=== PATIENT | female | born 2000 | race Caucasian/White ===

== ENCOUNTER 2024-11-07 11:06 | Emergency (ER) | payer OTHER, SELFPAY ==
[2024-11-07 11:20] VITALS: BP 119/80; PULSE 114; RESP 18; TEMP 36.9; O2SAT 100
--- NOTE | 2024-11-07 11:44 | ED_ITS ---
HPI - Nausea/Vomiting/Diarrhea General Chief complaint: Nausea/Vomiting/Diarrhea Stated complaint: Nausea/Vomiting/Headache Source: patient and RN notes reviewed Mode of arrival: ambulatory Limitations: no limitations History of Present Illness HPI Narrative: 24-year-old female presented for complaint of nausea and vomiting, onset 4 days. Endorses last episode of emesis was last evening. She states she is feeling much better today, tolerating food and fluids. She denies any abdominal pain, urinary complaints, hematochezia or melena. Patient started with headache and bilateral ear pressure today. Not taking anything for symptoms. Related Data Home Medications ?Medication ?Instructions ?Recorded ?Confirmed ?Last Taken ?Type escitalopram oxalate 5 mg tablet 5 mg PO DAILY 11/07/24 11/07/24 Unknown History (Lexapro) norelgestromin 150 mcg-e.estradiol patch 11/07/24 Unknown History 35 mcg/24 hr weekly transderm patch Allergies Allergy/AdvReac Type Severity Reaction Status Date / Time No Known Allergies Allergy Verified 11/07/24 11:18 Review of Systems Review of Systems: CONSTITUTIONAL: Denies body aches, fever, chills ENT: Denies rhinorrhea, congestion CARDIOVASCULAR: Denies chest pain, palpitations, or edema. RESPIRATORY: Denies cough or dyspnea. GASTROINTESTINAL: Endorses nausea, vomiting, Denies abdominal pain, diarrhea, hematochezia, melena GENITOURINARY: Denies hematuria, or CVA tenderness. SKIN: Denies rash MUSCULOSKELETAL: Denies back pain, joint pain, or myalgia. NEUROLOGIC: Denies headache, numbness, tingling, or weakness. All systems reviewed & are unremarkable except as noted in HPI and below PMFSH Comments At time of signature, I have reviewed and agree with nursing past medical, surg ical, social and family history unless otherwise noted. Please see nursing chart for further information. There is no relevant family history pertinent to the presenting complaint Exam Narrative: GENERAL: Well-appearing, and in no acute distress. EYES: EOMI. Conjunctivae normal. ENT: Mucous membranes pink and moist. CHEST: No respiratory distress. Clear to auscultation. HEART: Regular rate and rhythm. No murmur appreciated. Normal peripheral pulses. ABDOMEN: abd soft, nondistended, normal active bowel sounds. nontender abdomen; No guarding, rebound tenderness, asymmetry EXTREMITIES: Normal range of motion. No edema. SKIN: Warm, dry, no rash. Capillary refill normal. Normal skin turgor. NEURO: No focal deficits. Alert and oriented x3. PSYCH: Normal affect. Course Course Emergency Course: Patient is aware of diagnosis, understands and agrees to treatment plan. Anticipatory guidance given. Patient agrees to follow-up as directed and is aware of reasons to seek care at the emergency department. Portions of this record may have been created with voice recognition software Level of Care: Express Care Visit Vital Signs Vital signs: Vital Signs Temperature 98.5 F 11/07/24 11:20 Pulse Rate 114 H 11/07/24 11:20 Respiratory Rate 18 11/07/24 11:20 Blood Pressure 119/80 11/07/24 11:20 Pulse Oximetry 100 11/07/24 11:20 Temperature 98.5 F 11/07/24 11:20 Pulse Rate 114 H 11/07/24 11:20 Respiratory Rate 18 11/07/24 11:20 Blood Pressure 119/80 11/07/24 11:20 Pulse Oximetry 100 11/07/24 11:20 MDM - Nausea/Vomiting/Diarrhea MDM Narrative Medical decision making narrative: Discussed physical exam findings, negative flu and COVID. Patient declined prescription for Zofran Advised supportive measures and signs/symptoms to go to the ER. Pt is appropriate for outpt treatment and f/u. Differential Diagnosis Differential diagnosis: Likely food poisoning, drug-induced nausea and vomiting and dehydration Discharge Plan Discharge Clinical Impression: Nausea & vomiting Patient Disposition: Home Condition: Stable Instructions: Gastroenteritis (ED) Additional Instructions: Flu and Covid negative today. Stay hydrated. Take small sips of fluid containing electrolytes frequently. Clear liquids (broth, jello, tea, sprite, pedialyte) [place] foods (bananas, rice, applesauce, toast, crackers) Avoid fatty, greasy, fried or spicy foods. Limit dairy until symptoms are improved. You should go to the hospital if you experience persistent nausea and vomiting that does not resolve and does not allow you to tolerate any food or fluids, fevers, increasing abdominal pain, persistent diarrhea, dizziness, fainting, or for any other concerns. Follow up with primary care provider in 3 days. Patient Language: Swedish Prescriptions: No Action escitalopram oxalate [Lexapro] 5 mg tablet 5 mg PO DAILY norelgestromin-ethin.estradiol 150-35 mcg/24 hr patch weekly Follow-up/Referrals: PHYSICIAN,EYEGLASS FRAMES POLISHER [Primary Care Provider] - Time of Disposition: 11:45
[2024-11-07 11:49] LABS: EDCOVIDSCREEN Negative (Negative); EDINFLUASCREEN Negative (Negative); EDINFLUBSCREEN Negative (Negative)
== END 2024-11-07 11:52 | disposition home or self-care (01) ==
PROVIDERS: Emergency Provider Nurse Practitioner Family
DX: R11.2 Nausea with vomiting, unspecified (principal); Z20.822 Contact with and (suspected) exposure to COVID-19
CPT/HCPCS: 87426; 87804; 99202; G0463

== ENCOUNTER 2024-11-22 08:31 | Outpatient (CLI) | payer OTHER, SELFPAY ==
--- OUTSIDE RECORDS SUMMARY | 2024-03-07 11:20 | XMS_ITS ---
Author Organization [facility] Address [address] [place] [phone] Care Team Providers Care Marketing Forecaster Name Role Phone Kathia Goldberg PA-C Primary Care Provider Unavailable Kathia Goldberg Unavailable REASON FOR VISIT 1 yr f/up patient at home, provider in the office Social History Sex Assigned At : Social History Observation Description Sex Assigned At Female Encounters Encounter Location Date Provider Diagnosis [facility] [address] [place] [phone] 03/07/2024 Kathia Hicks Plan Of Treatment No Information Progress Notes * Jagruti WILSONeDOB:[birth year] (24 yo F)Acc No.[id number]:03/07/2024 UNLOCKED PROGRESS NOTE Patient: Racheal hankstraceyChristi Provider: Mickie Tejada PA-C :2000 A ge:23 Y S ex:Female Date:03/07/2024 [id number] Pcp:JEFF Brown Subjective: * Chief Complaints: * 1 yr f/up patient at home, provider in the office * Electronic signature of Dalia Hicks PA-C on 11/22/2024 at 08:34 AM CDT Sign off status: Pending Visit Status: R /S (Rescheduled) * Provider: Mickie Tejada PA-C Date: 1 05/08/2023 Generated for Shirley humphries/Dom/Theodora on: 0 11/22/2024 08:34 AM CDT
--- OUTSIDE RECORDS SUMMARY | 2024-11-22 08:34 | XMS_ITS | Clinical Summary ---
Author Organization [facility] Address [address] [facility] [place] [address] Care Team Providers Care Service Cashier Name Role Phone Maxwell Mckee MD Primary Care Provider [phone] Source Comments [facility] Affiliates and Associated Physician Practices is amultiple site organization consisting of ambulatory clinics and hospital sitesin [place] and [place]. This disclosure is being madepursuant to the Care Everywhere program and may not contain all information available regarding this patient. Last updated 17.[facility] Allergies No known active allergies Medications * Be aware that medications may not be up to date on this document. Alwaysverify current medications with the patient. XULANE 150-35 MCG/24HR patch Apply 1 (one) patch to skin every 7 days 3 patch 11 05/19/2021 Active escitalopram (Lexapro) 5 MG tablet TAKE 1 (ONE) TABLET BY MOUTH ONCE DAILY 90 tablet 3 05/11/2022 Active Family History Medical History Relation Name Comments Anxiety Disorder Father Bernard Hypertension Father Bernard Parkinson's Disease Maternal Grandfather Melvin Hypertension Maternal Grandmother Laura CAD (Coronary Artery Disease) Paternal Grandfather Matias Cancer - Prostate Paternal Grandfather Matias Hypertension Paternal Grandfather Matias Anxiety Disorder Paternal Grandmother Wanda CAD (Coronary Artery Disease) Paternal Grandmother Rut vicki Cancer - Breast Paternal Grandmother Wanda Diabetes - Type 2 Paternal Grandmother Wanda Hypertension Paternal Grandmother Wanda Relation Name Status Comments Father Bernard Alive Maternal Grandfather Melvin Alive Maternal Grandmother Laura Alive Mother Jaquelin Alive Paternal Grandfather Matias Alive Paternal Grandmother Wanda Social History Tobacco Use Types Packs/Day Years Used Date Smoking Tobacco: Never Smokeless Tobacco: Never Tobacco Cessation:Counseling Given: Not Answered Alcohol Use Standard Drinks/Week Comments No 0 (1 standard drink = 0.6 oz pur e alcohol) PHQ-2 Answer Date Recorded PHQ2 TOTAL SCORE 0 07/08/2022 Comments No Sex and Gender Information Value Date Recorded Sex Assigned at Not on file 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 Gender Identity Not on file Sexual Orientation Not on file Last Filed Vital Signs Vital Sign Reading Time Taken Comments Blood Pressure 109/76 07/08/2022 2:39 PM CDT Pulse 67 07/08/2022 2:39 PM CDT Temperature 36.9 C (98.5 F) 07/08/2022 2:39 PM CDT Respiratory Rate - - Oxygen Saturation 99% 07/08/2022 2:39 PM CDT Inhaled Oxygen Concentration - - Weight 63 kg (139 lb) 07/08/2022 2:39 PM CDT Height 165.1 cm (5' 5) 07/08/2022 2:39 PM CDT Body Mass Index 23.13 07/08/2022 2:39 PM CDT Plan of Treatment Health Maintenance Due Date Last Done Comments COVID-19 VACCINE (2023-2 5 season) 2023 06/10/2020 DEPRESSION SCREENING 04/03/2024 07/08/2022, 07/02/2021 INFLUENZA VACCINE (#1) 2024 01/29/2021 ZOSTER VACCINE (1 of 2) 10/08/2049 CHLAMYDIA/GONORRHEA SCREENING Discontinued DTAP/TDAP/TD VACCINES Discontinued HEPATITIS B VACCINE Discontinued HEPATITIS C SCREENING Discontinued HIB VACCINE Aged Out No longer eligi ble based on patient's age to complete this topic HIV SCREENING Discontinued HPV VACCINE Discontinued MENINGOCOCCAL (Group B) VACCINE SHARED DECISION-MAKING Aged Out No longer eligible based on patient's age to complete this topic MENINGOCOCCAL GROUPS A/C/Y/W VACCINE Aged Out No longer eligible based on patient's age to complete this topic PNEUMOCOCCAL VACCINE Aged Out No long er eligible based on patient's age to complete this topic Insurance [employer] Care Teams Service Cashier Relationship Specialty Start Date End Date Maxwell Mckee MD [address] [place] [address] PCP - General Family Medicine 06/01/18
--- OUTSIDE RECORDS SUMMARY | 2024-11-22 08:35 | XMS_ITS | Patient Health Record ---
Author Organization [facility] Address [address] [facility] [address] [place] [phone] Care Team Providers Care Radiation Safety Officer Name Role Phone Kathia Goldberg PA-C Primary Care Provider Unavailable Kathia Goldberg Unavailable Allergies No Known Allergies Results Component Value Reference Range Flag Notes LIPID PANEL Reviewed date:01/04/2024 09:01:10 AM Interpretation: Performing Lab:[facility]-[id number] Gilberto [id number] Kevin David MD Notes/Report: 0; 0; 0 CHOLESTEROL, TOTAL 207 <200 mg/dL H HDL CHOLESTEROL 58 > OR = 50 mg/dL N TRIGLYCERIDES 149 <150 mg/dL N LDL-CHOLESTEROL 123 H Reference range: <100 Desirable range <100 mg/dL for primary prevention; <70 mg/dL for patients with CHD or diabetic patients with > or = 2 CHD risk factors. LDL-C is now calculated using the Azael-Chloe calculation, which is a validated novel method providing better accuracy than the Friedewald equation in the estimation of LDL-C. Azael CALIX et al. YARITZA. 2013;310(19): 2756-7057 (http://education.[employer].dotSyntax/faq/FAQ 164) CHOL/HDLC RATIO 3.6 <5.0 (calc) N NON HDL CHOLESTEROL 149 <130 mg/dL (calc) H For patients with diabetes plus 1 major ASCVD risk factor, treating to a non-HDL-C goal of <100 mg/dL (LDL-C of <70 mg/dL) is considered a therapeutic option. COMPREHENSIVE METABOLIC PANE L (CMP) Reviewed date:01/04/2024 09:01:29 AM Interpretation: Performing Lab:[facility]-[id number] Susi Mehta, [id number] Kevin David MD Notes/Report: 0; 0; 0 GLUCOSE 82 65-99 mg/dL N Fasting reference interval UREA NITROGEN (BUN) 8 7-25 mg/dL N CREATININE 0.84 0.50-0.96 mg/dL N EGFR 99 > OR = 60 mL/min/1.73m2 N BUN/CREATININE RATIO SEE NOTE: 6-22 (calc) Not Reported: BUN and Creatinine are within reference range. SODIUM 138 135-146 mmol/L N POTASSIUM 3.9 3.5-5.3 mmol/L N CHLORIDE 102 98-110 mmol/L N CARBON DIOXIDE 30 20-32 mmol/L N CALCIUM 9.8 8.6-10.2 mg/dL N PROTEIN, TOTAL 7.4 6.1-8.1 g/dL N ALBUMIN 4.2 3.6-5.1 g/dL N GLOBULIN 3.2 1.9-3.7 g/dL (calc) N ALBUMIN/GLOBULIN RATIO 1.3 1.0-2.5 (calc) N BILIRUBIN, TOTAL 1.7 0.2-1.2 mg/dL H ALKALINE PHOSPHATASE 62 31-125 U/L N AST 21 10-30 U/L N ALT 25 6-29 U/L N CBC W AUTO DIFF Reviewed date:01/04/2024 09:01:44 AM Interpretation: Performing Lab:[facility]-[id number] Susi Mehta, [id number] Kevin David MD Notes/Report: 0; 0; 0 WHITE BLOOD CELL COUNT 6.9 3.8-10.8 Thousand/uL N RED BLOOD CELL COUNT 4.30 3.80-5.10 Million/uL N HEMOGLOBIN 12.8 11.7-15.5 g/dL N HEMATOCRIT 39.0 35.0-45.0 % N MCV 90.7 80.0-100.0 fL N MCH 29.8 27.0-33.0 pg N MCHC 32.8 32.0-36.0 g/dL N For adults, a slight decrease in the calculated MCHC value (in the range of 30 to 32 g/dL) is most likely not clinically significant; however, it should be interpreted with caution in correlation with other red cell parameters and the patient's clinical condition. RDW 12.2 11.0-15.0 % N PLATELET COUNT 351 140-400 Thousand/uL N MPV 10.6 7.5-12.5 fL N ABSOLUTE NEUTROPHILS 3678 9986-3501 cells/uL N ABSOLUTE LYMPHOCYTES 2312 850-3900 cells/uL N ABSOLUTE MONOCYTES 600 200-950 cells/uL N ABSOLUTE EOSINOPHILS 262 15-500 cells/uL N ABSOLUTE BASOPHILS 48 0-200 cells/uL N NEUTROPHILS 53.3 N LYMPHOCYTES 33.5 N MONOCYTES 8.7 N EOSINOPHILS 3.8 N BASOPHILS 0.7 N Reason For Referral No Information Medications Medication SIG (Take, Route, Frequency, Duration) Notes Start Date End Date Status Triamcinolone Acetonide 0.1 % Paste 1 application at bedtime Mouth Daily; Duration: 30 days 05/05/2023 Not-Taking Zafemy 150-35 MCG/24HR Patch Weekly APPLY 1 PATCH TO THE SKIN ONCE WEEKLY; Duration: 28 Active Escitalopram Oxalate 5 MG Tablet 1 tablet Orally Once a day; Duration: 90 days Active Social History Tobacco Use: Social History Observation Description Date Details (start date - stop date) Never Smoker NA - NA Sex Assigned At : Social History Observation Description Sex Assigned At Female Social History Drugs/Alcohol: Social Info Question Answer Notes Alcohol Screen (Audit-C) Did you have a drink containing alcohol in the past year? No Points 0 Interpretation Negative Drugs Have you used drugs other than those for medical reasons in the past 12 months? No DAST Form: Social Info Question Answer Notes DAST-10 (2020 Edition) 1. Have you used drugs other than those required for medical reasons? No 2. Do you abuse more than one drug at a time? No 3. Are you always able to stop using drugs when you want to? Yes 4. Have you had blackouts or flashbacks as a result of drug use? No 5. Do you ever feel bad or guilty about your albert g use? No 6. Does your spouse (or pare nts) ever complain about your involvement with drugs? No 7. Have you neglected your f amily because of your use of drugs? No 8. Have you engaged in illeg al activities in order to obtain drugs? No 9. Have you ever experienced withdrawal symptoms (felt sick) when you stopped taking drugs? No 10. Have you had medical pro blems as a result of your drug use (e.g., memory loss, hepatitis, convulsions, bleeding etc.)? No Results: 0 Interpretation of Score: No problems reported Tobacco Use: Social Info Question Answer Notes Tobacco Control (Standard) Tobacco use: Nonsmoker Additional Findings: Tobacco non-user Current no nsmoker Exposed to second hand smoke Exposed to second hand sm brian No Tobacco Use/Smoking Are you a nonsmoker Tobacco use other than smoking: Are you an other tobac co user? No Additional Details Category Social Info Options Details Self-Management Flu Shot No Covid-19 Vaccine Yes Jase Crowley on/ Chanell Administered Problems Problem Type SNOMED Code ICD Code Onset Dates Problem Status W/U Status Risk Notes Problem Anxiety (88968432) Anxiety (F41.9) Active confirmed Problem Anxiety, generalized (F41.1) Active confirmed Vital Signs Heart Rate 67 /min 03/11/2024 Temperature 96.9 degrees Fahrenheit 03/11/2024 Respiratory Rate 18 /min 03/11/2024 Height-cm 162.56 cm 03/11/2024 Oximetry 98 % 03/11/2024 Blood pressure diastolic 72 mm Hg 03/11/2024 Weight-kg 63.23 kg 03/11/2024 Height 64 in 03/11/2024 Blood pressure systolic 106 mm Hg 03/11/2024 Weight 139.4 lbs 03/11/2024 BMI 23.93 kg/m2 03/11/2024 Encounters Encounter Location Date Provider Diagnosis [facility] [address] [place] [phone] 01/03/2024 Kathia Hicks Screening cholester ol level Z13.220 [facility] [address] [place] [phone] 03/11/2024 Kathia Hicks Annual physical exa m Z00.00 and Anxiety, generalized F41.1 [facility] [address] [place] [phone] 01/04/2024 Kathia Hicks [facility] [address] [phone] 12/16/2023 Kathia Hicks [facility] [address] [place] [phone] 12/29/2023 Kathia Hicks [facility] [address] [place] [phone] 05/09/2024 Kathia Hicks Anxiety, generalize d F41.1 Assessments Encounter Date Diagnosis (ICD Code) Assessment Notes Treatment Notes Treatment Clinical Notes Section Notes 01/03/2024 Screening cholesterol level (ICD-10 - Z13.220) 03/11/2024 Annual physical exam (ICD-10 - Z00.00) 03/11/2024 Anxiety, generalized (ICD-10 - F41.1) 05/09/2024 Anxiety, generalized (ICD-10 - F41.1) Plan Of Treatment No Information Insurance Providers Payer Name Payer Address Payer Phone Subscriber Number Group Number Insured Name Patient Relationship to Insured Coverage Start Date Coverage End Date [facility] [address] [place], [place] [id number] 1 PNP Christi Nava Self - patient is the insured 3 Medical (General) History Medical History History ICD Code anxiety
[2024-11-22 13:27] LABS: Hematocrit 44.2 % (37.0-47.0); Hemoglobin 14.3 g/dL (12.0-15.0); Immature Granulocyte Percent A 0.2 % (0-0.5); Lymphocytes Absolute Auto 1.84 K/mm3 (0.9-3.2); Mean Corpuscular HGB Conc 32.4 g/dl (32-36); Mean Corpuscular Hemoglobin 29.5 pg (26-34); Mean Corpuscular Volume 91.3 fl (80-100); Nucleated Red Blood Cells Absolute Auto 0.000 K/mm3 (0.0-0.012); Nucleated Red Blood Cells Perc 0.0 % (0.0-0.2); Platelet Count Result 352 k/mm3 (150-375); Red Blood Count 4.84 M/mm3 (4.2-5.4); White Blood Count 5.7 K/mm3 (4.5-10.0)
[2024-11-22 13:37] LABS: Alanine Aminotransferase 31 U/L (6-35); Albumin Level 4.8 g/dL (3.5-5.1); Alkaline Phosphatase 66 U/L (38-126); Anion Gap 10 mmol/L (4-12); Aspartate Amino Transferase 60 U/L (14-36); Bilirubin,Total 1.5 mg/dL (0.2-1.3); Blood Urea Nitrogen 12 mg/dL (7-17); Calcium 10.4 mg/dL (8.4-10.2); Carbon Dioxide 26 mmol/L (22-30); Chloride 104 mmol/L (98-107); Cholesterol 239 mg/dL (0-200); Estimated Glomerular Filt Rate > 60; Glucose 76 mg/dL (65-110); HDL Direct 74 mg/dL; Potassium 4.9 mmol/L (3.4-5.0); Sodium 140 mmol/L (137-145); Total Protein 9.2 g/dL (6.3-8.2); Triglycerides 96 mg/dL (<150)
[2024-11-22 14:06] LABS: Thyroid Stimulating Hormone Reflex 1.750 uIU/mL (0.465-4.68)
[2024-11-26 16:07] LABS: ANA by IFA Rfx Titer/Pattern Negative (.)
== END 2024-11-22 08:32 | disposition home or self-care (01) ==
LOC: ANHGOSHLAB 08:33
PROVIDERS: PCP Nurse Practitioner Family; Visit Provider Nurse Practitioner Family
DX: Z00.00 Encounter for general adult medical examination without abnormal findings (principal); Z13.220 Encounter for screening for lipoid disorders
CPT/HCPCS: 36415; 80053; 80061; 84443; 85025; 86038

== ENCOUNTER 2024-11-22 10:12 | Outpatient (CLI) | payer OTHER, SELFPAY ==
--- NOTE | ~2024-11-22 | CT_ITS ---
History: Headache after a fall PROCEDURE: CT head without contrast. COMPARISON: None TECHNIQUE: Axial imaging of the head performed from the skull base to the vertex without IV contrast. Sagittal and coronal reformations obtained. DLP: 646 mGy-cm FINDINGS: The ventricles are normal in size, shape and position. There is no mass, mass effect or midline shift. There is no abnormal extra-axial fluid collection or intracranial hemorrhage. Visualized paranasal sinuses are clear. The mastoid air cells are well aerated. No acute displaced fractures within the overlying cranium. Impression: No acute intracranial hemorrhage or suspicious mass effect. Reviewed, dictated and finalized at location A. Impression: No acute intracranial hemorrhage or suspicious mass effect.
== END 2024-11-22 10:13 | disposition home or self-care (01) ==
PROVIDERS: PCP Nurse Practitioner Family; Visit Provider Student in an Organized Health Care Education/Training Program
DX: S09.90XA Unspecified injury of head, initial encounter (principal); X58.XXXA Exposure to other specified factors, initial encounter
CPT/HCPCS: 70450